=== PATIENT | male | born 1990 | race Caucasian/White ===

== ENCOUNTER → 2022-11-05 10:25 | Outpatient (CLI) | payer OTHER, SELFPAY ==
[2022-11-05 19:34] LABS: Add Manual Diff / Slide Review NO; Basophils Absolute Auto 0 /uL (0-100); Basophils Percent Auto 0.4 % (0-2); Eosinophils Absolute Auto 500 /uL (0-450); Eosinophils Percent Auto 10.5 % (2-4); Hematocrit 46.9 % (41-53); Hemoglobin 16.5 g/dL (13.5-17.5); Lymphocytes Absolute Auto 1500 /uL (1100-4500); Lymphocytes Percent Auto 31.6 % (25-40); Mean Corpuscular HGB Conc 35.1 % (30-36); Mean Corpuscular Hemoglobin 30.3 PG (26-34); Mean Corpuscular Volume 86.3 fL (80-100); Monocytes Absolute Auto 300 /uL (0-900); Monocytes Percent Auto 5.4 % (3-14); Neutrophils Absolute Auto 2500 /uL (1500-7000); Neutrophils Percent Auto 52.1 % (50-75); Platelet Count 176 X10^3/uL (150-400); Red Blood Cell Count 5.43 X10^6/uL (4.5-5.9); Red Cell Distribution Width 12.7 % (11.6-14.8); White Blood Cell Count 4.8 X10^3/uL (4.5-11.0)
[2022-11-05 19:44] LABS: Alanine Aminotransferase 27 IU/L (<50); Albumin 4.6 g/dL (3.5-5.0); Albumin Globulin Ratio 1.4 (1.0-2.8); Alkaline Phosphatase 90 U/L (38-126); Aspartate Aminotransferase 26 IU/L (17-59); BUN Creatinine Ratio 15.2 (6-22); Blood Urea Nitrogen 15 mg/dL (9-20); Calcium 9.5 mg/dL (8.4-10.2); Carbon Dioxide 28 mmol/L (22-32); Chloride 102 mmol/L (98-107); Cholesterol 221 mg/dL (140-199); Estimated Glomerular Filt Rate > 60 mL/min (>60); Globulin 3.3 g/dL (1.7-4.1); Glucose 93 mg/dL (70-100); HDL Cholesterol 45 mg/dL (40-60); HEMOLYSIS < 15 (0-50); LDL Cholesterol Calculated 149 mg/dL (<100); Potassium 4.3 mmol/L (3.4-5.1); Sodium 140 mmol/L (137-145); Total Protein 7.9 g/dL (6.3-8.2); Triglycerides 137 mg/dL (35-150)
[2022-11-05 20:11] LABS: TSH w/ Reflex to FT4 1.65 uIU/mL (0.47-4.68)
== END ==
PROVIDERS: PCP Physician Assistant Medical; Visit Provider Physician Assistant Medical
DX: R13.10 Dysphagia, unspecified (principal); Z00.00 Encounter for general adult medical examination without abnormal findings
CPT/HCPCS: 80053; 80061; 84443; 85025

== ENCOUNTER → 2022-12-04 09:38 | Outpatient (CLI) | payer OTHER, SELFPAY ==
--- NOTE | 2022-12-04 09:40 | DI.RAD.S_ITS ---
PROCEDURE: FL BARIUM SWALLOW W SPEECH INDICATIONS: years of limited breathing when swallowing dry foods COMPARISON: None. TECHNIQUE: Examination was conducted in conjunction with speech pathology per standard protocol. In the lateral projection, filming was performed of the patient swallowing. AP projection filming may also be performed with patient swallowing. COMPARISON: FINDINGS: Function: The oral preparatory phase appears normal, with proper containment. The subsequent oral propulsive phase, pharyngeal phase, and esophageal phase of swallowing also appear normal with all proffered substances. No laryngotracheal penetration or aspiration. 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 Morphology: No cricopharyngeal bar is identified. No cervical esophageal webs. No Zenker's diverticulum. No strictures. IMPRESSION: There is vallecular pooling. No laryngotracheal penetration or aspiration. Please see separate speech pathologist's report. Dictated by: Kalia Joe M.D. on 12/04/2022 at 15:45 Approved by: Kalia Joe M.D. on 12/04/2022 at 15:46
--- NOTE | 2022-12-04 15:56 | ST.SWALLOW ---
Visit Care Team Role Provider Type Tammy Esquivel PA-C Attending Provider Advanced Sheet Turner Primary Care Provider Referring Provider Specialty: Medical Address: [address] [place] [address], [id number] Email: [email or web address] Modified Barium Swallow Study [employer] Modified Barium Swallow Study Start: 12/04/22 15:04 Freq: Status: Active Protocol: Document 12/04/22 15:10 ZS (Rec: 12/04/22 15:22 ZS [id number]) Modified Barium Swallow Study Total Time Visit Start Time 10:30 Visit Stop Time 11:00 Total Visit Minutes 30 Setting Setting Outpatient Care Patient Information Identification Type Name Patient History Freedom is a 32-year old male who has experienced difficulty swallowing solids for the past 5 years. He reported difficulty breathing when swallowing dry solids and stated he sometimes can cough up pieces of dry breads. Pt indicated he often drinks water when experiencing food that gets stuck to help wash it down. Pt pointed to upper throat and said it feels like there is a pouch where foods gets stuck. He reported no difficulty with liquids. Subjective Observations Freedom arrived on time and ambulated to therapy room independently. Provided education regarding process and procedure and pt expressed understanding and agreed to participate. Completed oral motor assessment with pt. Structures were symmetrical at rest and in motion. Tongue, lips, and jaw strength and ROM were WNL. Dentition present and WNL. Structure and function of oral mechanism appears WNL for the purposes of speech and swallowing. Patient Positioning Position View Lat-A/P Imaging Lateral View Textures Administered Trials Presented Thin Liquid via Cup,[place] Liquid via Cup,Regular Textures Oral Phase Source: MBSIMP (TM) (C) Bolus Specific Scoring Grid Lip Closure No Impairment (WNL) Tongue Control During Bolus Hold No Impairment (WNL) Bolus Prep/Mastication No Impairment (WNL) Bolus Transport/Lingual Motion No Impairment (WNL) A/P Lingual Propulsion Delay No Oral Residue Mild Impairment Residue Clearing WFL Nasal Regurgitation No Additional Oral Phase Observations Pt exhibited no anterior or posterior loss of bolus during tongue hold. A/p propulsion and mastication were timely and efficient. Mild residue observed following initial swallow and pt spontaneously swallowed a second time, clearing residue to WNL. Pharyngeal Phase Source: MBSIMP (TM) (C) Bolus Specific Scoring Grid Delayed Initiation of Pharyngeal Swallow No Soft Palate Elevation No Impairment (WNL) Tongue Base Strength/Range of Motion Mild Impairment Residue Along the Tongue Base Yes Clearance of Residue Along Tongue Base WFL Laryngeal Elevation Mild Impairment Anterior Hyoid Movement Mild Impairment Epiglottic Range of Motion Mild Impairment Vallecular Residue Yes Clearance of Vallecular Residue Mild Impairment Laryngeal Vestibular Closure Mild Impairment Pharyngeal Stripping Wave No Impairment (WNL) Posterior Pharyngeal Wall Residue No Upper Esophageal Sphincter Opening Mild Impairment Residue in the Pyriform Sinuses Yes Clearance of Residue in the Pyriform Mild Impairment Sinuses Esophageal Clearance Upright Position Moderate Impairment Pharyngoesophageal Backflow Observed Yes Additional Pharyngeal Phase Observations Pt exhibited mild base of tongue weakness which negatively contributed to hyolargyneal elevation and excursion. Reduced hyolaryngeal elevation and excursion, in turn, negatively impacted epiglottic inversion and laryngeal vestibular closure. Epiglottis was observed to invert about chcf on several trials, hitting the posterior pharyngeal wall instead of fully inverting. Full inversion noted with thicker boluses, likely due to increased weight of bolus aiding in epiglottic inversion . Mildly impaired laryngeal vestibular closure resulted in penetration (PAS 2) with sequential sips of thin liquid . Single sips and thicker liquids did not exhibit any instances of aspiration or penetration. Pt is also at higher risk for aspiration due to mild residue that remained in valleculae and pyriforms following swallow. Residue worsens with increased thickness of bolus and are not improved with chin tuck or double swallow. Duration of PES opening is limited, which, when paired with limited epiglottic inversion, results in mild pharyngeal residue. Risk for aspiration occurs when residue is present while airway is open. No instances of aspiration or penetration of residue noted during trial, but pt would benefit from speech therapy to reduce this risk. A/P View Textures Administered Trials Presented Thin Liquid via Cup,Barium Tablet A/P View Observations Esophageal Clearance Upright Position Moderate Impairment Additional Observations Pt exhibited complete and timely clearance of thin liquid and barium tablet in esophageal view. He was noted to have esophageal retention with backflow through PES on solid trials, as observed in lateral view. Backflow occurred when pt was completing second swallow of bolus with solid trials. Clinical Impressions Dysphagia Type Pharyngeal dysphagia Findings The pt presents with mild pharyngeal phase dysphagia characterized by impaired airway protection. Base of tongue weakness and impaired hyolargyneal elevation and excursion negatively impact epiglottic inversion and laryngeal vestibular closure, which places pt at higher risk for aspiration. Penetration ( PAS 2) was observed on sequential sips of thin liquid , but not seen with single sips or with thicker liquids. Additionally, reduced PES opening and mildly impaired epiglottic inversion resulted in higher volume of pharyngeal residue in valleculae and pyriforms following swallow, which also increase risk for aspiration. Recommend speech therapy for improved strength of base of tongue and increased hyolaryngeal elevation and excursion to increase swallow safety with oral intake. Rehabilitation Potential Excellent Patient Appropriate for Therapy Yes Recommendations Diet Liquids Order Thin Diet Order Regular Medication Recommendation As Tolerated Aspiration Precautions Recommended Precautions Upright at 90 Degrees,Small Bites/Sips Treatment Plan Therapy Recommendations Outpatient Speech Therapy
== END ==
PROVIDERS: PCP Physician Assistant Medical; Referring Provider Physician Assistant Medical; Visit Provider Physician Assistant Medical
DX: Z00.00 Encounter for general adult medical examination without abnormal findings (principal); R13.10 Dysphagia, unspecified
CPT/HCPCS: 74230; 92611

== ENCOUNTER → 2025-06-06 09:31 | Outpatient (CLI) | payer OTHER, SELFPAY ==
[2025-06-06 19:35] LABS: Add Manual Diff / Slide Review NO; Hematocrit 45.2 % (41-53); Hemoglobin 15.8 g/dL (13.5-17.5); Lymphocytes Absolute Auto 1700 /uL (1100-4500); Mean Corpuscular HGB Conc 35.0 % (30-36); Mean Corpuscular Hemoglobin 30.5 PG (26-34); Mean Corpuscular Volume 87.1 fL (80-100); Platelet Count 181 X10^3/uL (150-400)
[2025-06-06 19:54] LABS: Alanine Aminotransferase 23 IU/L (<50); Albumin 4.3 g/dL (3.5-5.0); Albumin Globulin Ratio 1.5 (1.0-2.8); Alkaline Phosphatase 95 U/L (38-126); Blood Urea Nitrogen 12 mg/dL (9-20); Calcium 9.2 mg/dL (8.4-10.2); Carbon Dioxide 28 mmol/L (22-32); Chloride 103 mmol/L (98-107); Cholesterol 181 mg/dL (140-199); Estimated Glomerular Filt Rate > 60 mL/min (>60); Globulin 2.9 g/dL (1.7-4.1); Glucose 99 mg/dL (70-99); HDL Cholesterol 39 mg/dL (40-60); HEMOLYSIS < 15 (0-50); Potassium 4.1 mmol/L (3.4-5.1); Sodium 140 mmol/L (137-145); Total Protein 7.2 g/dL (6.3-8.2); Triglycerides 110 mg/dL (35-150)
== END ==
PROVIDERS: PCP Physician Assistant Medical; Visit Provider Family Medicine
DX: J30.2 Other seasonal allergic rhinitis (principal); D72.10 Eosinophilia, unspecified; E78.2 Mixed hyperlipidemia
CPT/HCPCS: 80053; 80061; 85025